=== PATIENT | male | born 1970 | race Caucasian/White ===

== ENCOUNTER 2019-02-05 08:54 | Emergency (ER) | payer BC ==
[~2019-02-05] VITALS: Ht 175.3 cm; Wt 72.6 kg
[2019-02-05 09:01] VITALS: Ht 175.3 cm; Wt 72.6 kg
[2019-02-05 09:37] VITALS: BP 134/77
== END 2019-02-05 09:37 | disposition home or self-care (01) ==
LOC: ED 08:54
DX: B30.9 Viral conjunctivitis, unspecified (principal); J06.9 Acute upper respiratory infection, unspecified; E11.9 Type 2 diabetes mellitus without complications